=== PATIENT | male | born 1990 | race Two or more races ===

== ENCOUNTER 2018-05-25 12:21 | Emergency (ER) | payer SELFPAY ==
[~2018-05-25] VITALS: Ht 165.1 cm; Wt 68.0 kg
[2018-05-25 12:35] VITALS: BP 145/74
--- NOTE | 2018-05-25 13:12 | NUR ---
Patient discharged to home in stable condition. Written and verbal after care instructions given. Patient verbalizes understanding of instruction.
== END 2018-05-25 13:12 | disposition home or self-care (01) ==
LOC: ER 12:23
DX: T40.1X1A Poisoning by heroin, accidental (unintentional), initial encounter (principal); Y92.89 Other specified places as the place of occurrence of the external cause
CPT/HCPCS: 99283; A4606; Z7610